=== PATIENT | male | born 1995 | race Caucasian/White ===

== ENCOUNTER 2022-08-16 21:34 | Emergency (ER) | payer BC ==
[~2022-08-16] VITALS: Ht 172.7 cm; Wt 77.7 kg
[2022-08-16 21:53] VITALS: BP 125/72
== END 2022-08-17 07:47 | disposition home or self-care (01) ==
LOC: ER 21:34
DX: R19.6 Halitosis (principal)
CPT/HCPCS: 99281

== ENCOUNTER 2024-10-26 15:44 | Emergency (ER) | payer BC ==
[~2024-10-26] VITALS: Ht 172.7 cm; Wt 82.0 kg
[2024-10-26 16:06] VITALS: BP 125/73; PULSE 87; RESP 12; TEMP 97.6; O2SAT 98; O2SAT 99
[2024-10-26] MEDS ORDERED: PRED5TAB48 MT (20:58)
== END 2024-10-26 23:05 | disposition left against medical advice (07) ==
LOC: ER 15:44
DX: T59.811A Toxic effect of smoke, accidental (unintentional), initial encounter (principal); J70.5 Respiratory conditions due to smoke inhalation; R06.02 Shortness of breath; Z98.890 Other specified postprocedural states
CPT/HCPCS: 71045; 99283